=== PATIENT | male | born 1955 | race Hispanic/Latino ===

== ENCOUNTER 2017-05-10 07:48 | Day surgery (SDC) | payer BC ==
[2017-05-08 13:40] VITALS: BP 141/74
[2017-05-08 14:13] LABS: BASOPHILS % (AUTO) 0.9 % (0.0-5.0); EOSINOPHILS % (AUTO) 2.1 % (0.0-8.0); HEMATOCRIT 40.9 % (42-54); LYMPHOCYTES % (AUTO) 27.6 % (21.0-51.0); MEAN CORPUSCULAR HGB CONC 34.6 g/dL (32.0-36.0); MEAN CORPUSCULAR VOLUME 89.6 fL (79-99); MONOCYTES % (AUTO) 5.8 % (3.0-13.0); NEUTROPHILS % (AUTO) 63.6 % (40.0-77.0); PLATELET COUNT (AUTO) 260 K/uL (130-400); RED BLOOD CELL COUNT(AUTO) 4.56 MIL/uL (4.50-6.20); RED CELL DISTRIBUTION WIDTH 13.7 % (11.0-15.5); WHITE BLOOD COUNT (AUTO) 8.4 K/uL (4.8-10.8)
[2017-05-08 14:16] LABS: APPEARANCE,URINE Turbid (CLEAR); BILIRUBIN,URINE Negative (NEGATIVE); COLOR,URINE Yellow (YELLOW); GLUCOSE, URINE (UA) Negative (NEGATIVE); KETONES,URINE Negative (NEGATIVE); LEUKOCYTE ESTERASE ,URINE Small (NEGATIVE); NITRATE,URINE Negative (NEGATIVE); OCCULT BLOOD,URINE Negative (NEGATIVE); PH,URINE >=9.0 (5.0-8.0); PROTEIN,URINE Negative (NEGATIVE); UROBILINOGEN,URINE 0.2 mg/dL (0.2-1.0)
[2017-05-08 14:24] LABS: BACTERIA,URINE Moderate /HPF (None Seen); RBC,URINE None Seen /HPF (0-1)
[2017-05-08 14:24] LABS: INR 0.99 (0.85-1.15); PARTIAL THROMBOPLASTIN TIME 28.2 SEC (26.3-35.5); PROTHROMBIN TIME 10.4 SEC (9.6-11.6)
[2017-05-08 14:25] LABS: AMORPHOUS SEDIMENT,UR Moderate /LPF (None Seen); SQUAMOUS EPITHELIAL CELL,UR 0-2 /LPF (0-2)
[2017-05-10] VITALS (10 sets, daily range): BP systolic 119–150; BP diastolic 69–86
[~2017-05-10] VITALS: Ht 168.9 cm; Wt 108.8 kg
[~2017-05-10 07:48] MED LIST: GEMF600T3 PO; MOME13HF2 IH; SODIUM CHLORIDE 0.9% 500ML 500 ML IV SCH
[2017-05-10] MEDS ORDERED: LIDOCAINE HCL 2% 20ML ONE ×2 (09:29→10:05)
[2017-05-10] MEDS ORDERED: ISOVUE-370 50ML VIAL IV ONE (09:29)
[2017-05-10] MEDS ORDERED: HEPARIN SODIUM 1000UNIT/ML 10ML VIAL ONE (09:29)
[2017-05-10] MEDS ORDERED: IOPAMIDOL-370 100 ML VIAL IV ONE (09:29)
== END 2017-05-10 15:10 | disposition home or self-care (01) ==
LOC: DAH 07:48
PROVIDERS: ATTEND Internal Medicine Cardiovascular Disease
DX: I34.0 Nonrheumatic mitral (valve) insufficiency (principal); I49.3 Ventricular premature depolarization; J45.909 Unspecified asthma, uncomplicated; E78.5 Hyperlipidemia, unspecified; Z98.890 Other specified postprocedural states; Z79.899 Other long term (current) drug therapy; I10 Essential (primary) hypertension
CPT/HCPCS: 36415; 71045; 80048; 81001; 85025; 85610; 85730; 93005; 93460; A4606; C1760; C1894 ×2; J1644; J3490 ×2; J7040; Q9967 ×2

== ENCOUNTER 2017-05-22 14:30 | Inpatient (IN) | payer BC ==
[~2017-05-22] VITALS: Ht 170.2 cm; Wt 103.1 kg
[~2017-05-22 14:30] MED LIST changes: -SODIUM CHLORIDE 0.9% 500ML 500 ML IV SCH
[2017-05-24 11:29] VITALS: BP 135/86
[2017-05-24 11:49] LABS: BASOPHILS % (AUTO) 0.8 % (0.0-5.0); EOSINOPHILS % (AUTO) 1.7 % (0.0-8.0); HEMATOCRIT 41.4 % (42-54); LYMPHOCYTES % (AUTO) 26.7 % (21.0-51.0); MEAN CORPUSCULAR HEMOGLOBIN 30.7 pg (27.0-33.0); MEAN CORPUSCULAR HGB CONC 34.4 g/dL (32.0-36.0); MEAN CORPUSCULAR VOLUME 89.4 fL (79-99); MONOCYTES % (AUTO) 7.3 % (3.0-13.0); NEUTROPHILS % (AUTO) 63.5 % (40.0-77.0); PLATELET COUNT (AUTO) 268 K/uL (130-400); POTASSIUM 4.3 mmol/L (3.5-5.1); RED BLOOD CELL COUNT(AUTO) 4.63 MIL/uL (4.50-6.20); RED CELL DISTRIBUTION WIDTH 13.8 % (11.0-15.5); WHITE BLOOD COUNT (AUTO) 9.3 K/uL (4.8-10.8)
[2017-05-24 12:03] LABS: INR 0.99 (0.85-1.15); PARTIAL THROMBOPLASTIN TIME 29.9 SEC (26.3-35.5); PROTHROMBIN TIME 10.4 SEC (9.6-11.6)
[2017-05-24 12:28] LABS: HEMOGLOBIN A1C 5.9 % (4.0-6.0)
[2017-05-24] MEDS ORDERED: WATER FOR INJECTION,STERILE 20 ML VIAL IJ SCH (13:15)
[2017-05-25] VITALS (7 sets, daily range): BP systolic 98–135; BP diastolic 49–76
[2017-05-25] MEDS: CEFUROXIME SODIUM 1.5 GM VIAL IVP SCH ×2 (11:00→14:30)
[2017-05-25] MEDS ORDERED: SODIUM CHLORIDE 0.9% 1000ML 1,000 ML IV ONE (11:45)
[2017-05-25] MEDS ORDERED: AMINOCAPROIC ACID 250 MG/ML 20 ML VIAL IV ONE (12:00)
[2017-05-25] MEDS ORDERED: MANNITOL 25% 50ML VIAL IV ONE (12:00)
[2017-05-25] MEDS ORDERED: ALBUMIN (HUMAN) 25% 50 ML IV ONE (12:00)
[2017-05-25] MEDS ORDERED: CALCIUM CHLORIDE 100 MG/ML 10 ML SYG IVP ONE (12:00)
[2017-05-25] MEDS ORDERED: HEPARIN SODIUM 1000UNIT/ML 10ML VIAL IV ONE (12:00)
[2017-05-25] MEDS ORDERED: SODIUM BICARB 8.4% 50ML SYRINGE IVP ONE (12:00)
[2017-05-25] MEDS ORDERED: GLYCOPYRROLATE 0.2 MG/ML 5 ML VIAL ONE (14:07)
[2017-05-25] MEDS ORDERED: FENTANYL CITRATE PF 50 MCG/1 ML 20ML VIAL IJ ONE (14:07)
[2017-05-25] MEDS ORDERED: PROPOFOL 10 MG/ML 20ML VIAL IV ONE (14:07)
[2017-05-25] MEDS ORDERED: LIDOCAINE HCL 4% LTA SOL 4 ML VIAL ONE (14:07)
[2017-05-25] MEDS ORDERED: ROCURONIUM BROMIDE 10MG/1ML 5ML VL ONE ×7 (14:07→15:47)
[2017-05-25] MEDS ORDERED: LIDOCAINE HCL 1% 10 ML VIAL ONE (14:07)
[2017-05-25] MEDS ORDERED: LIDOCAINE HCL-MPF 1% 5ML AMP IJ ONE (14:07)
[2017-05-25] MEDS ORDERED: MIDAZOLAM HCL 1 MG/ML 5ML VIAL ONE (14:07)
[2017-05-25] MEDS ORDERED: LIDOCAINE PF 2% 5ML ABBOJECT ONE (14:07)
[2017-05-25] MEDS ORDERED: THROMBIN-JMI 5000 UNIT/VIAL TP ONE (14:40)
[2017-05-25] MEDS ORDERED: DELNIDO FORMULA 1 BAG IV ONE (14:42)
[2017-05-25] MEDS ORDERED: BACITRACIN 50,000 UNIT VIAL ONE (14:57)
[2017-05-25 15:20] LABS: ABG BASE EXCESS -1.9 mmol/L (-2.0-3.0); ABG OXYGEN SATURATION 99.2 % (95.0-99.0); ABG PCO2 40 mmHg (35-48)
[2017-05-25] MEDS ORDERED: METHYLPREDNISOLONE SOD SUCC 1,000 MG/8 ML ML IV ONE (15:26)
[2017-05-25] MEDS: AMBU PUMP 1 EACH EACH MISC SCH (15:30)
[2017-05-25 16:08] LABS: ABG BASE EXCESS -6.3 mmol/L (-2.0-3.0); ABG HCO3 19.5 mmol/L (21.0-28.0); ABG OXYGEN SATURATION 98.8 % (95.0-99.0); ABG PCO2 40 mmHg (35-48)
[2017-05-25 16:32] LABS: ABG BASE EXCESS -1.9 mmol/L (-2.0-3.0); ABG HCO3 23.3 mmol/L (21.0-28.0); ABG OXYGEN SATURATION 98.8 % (95.0-99.0); ABG PCO2 41 mmHg (35-48)
[2017-05-25] MEDS ORDERED: SODIUM CHLORIDE 0.9% 500ML 500 ML IV SCH (16:41)
[2017-05-25] MEDS ORDERED: SODIUM CHLORIDE 0.9% 1000ML 1,000 ML IV SCH (16:45)
[2017-05-25] MEDS ORDERED: DEXTROSE 50%-WATER 50 ML DISP.SYRIN IV PRN (16:45)
[2017-05-25] MEDS ORDERED: ACETAMINOPHEN 650 MG SUPPOSITORY RC PRN (16:45)
[2017-05-25] MEDS ORDERED: SODIUM CHLORIDE 0.9% 250 ML IV PRN (16:45)
[2017-05-25] MEDS ORDERED: CALCIUM GLUCONATE 1 GM in SODIUM CHLORIDE 0.9% 50 ML IV PRN (16:45)
[2017-05-25] MEDS ORDERED: ALBUMIN (HUMAN) 5% 250 ML IV PRN (16:45)
[2017-05-25] MEDS ORDERED: ACETAMINOPHEN 325 MG TAB PO PRN (16:45)
[2017-05-25] MEDS ORDERED: HYDROCODONE/ACETAMINOPHEN 5/325 MG TAB PO PRN (16:45)
[2017-05-25] MEDS ORDERED: NICARDIPINE HCL 100 MG in SODIUM CHLORIDE 0.9% 100 ML IV PRN (16:45)
[2017-05-25] MEDS ORDERED: MAGNESIUM 2GM PREMIX 50ML 50 ML IV PRN (16:45)
[2017-05-25] MEDS ORDERED: MORPHINE SULFATE 4 MG/1ML SYG IV PRN (16:45)
[2017-05-25] MEDS ORDERED: AMINOCAPROIC ACID 15,000 MG in SODIUM CHLORIDE 0.9% 250 ML IV SCH (16:45)
[2017-05-25] MEDS ORDERED: EPINEPHRINE 2 MG in SODIUM CHLORIDE 0.9% 250 ML IV PRN (16:45)
[2017-05-25] MEDS ORDERED: SODIUM BICARB 8.4% 50ML SYRINGE IV PRN (16:45)
[2017-05-25] MEDS ORDERED: POTASSIUM PHOS 15 mMOL+NS250ML 250 ML IV PRN (16:45)
[2017-05-25] MEDS ORDERED: NOREPINEPHRINE 4MG/NS 250ML 250 ML IV PRN (16:45)
[2017-05-25] MEDS ORDERED: INSULIN REGULAR, HUMAN 3ML 100 UNIT in SODIUM CHLORIDE 0.9% 99 ML IV SCH ×2 (16:45)
[2017-05-25] MEDS ORDERED: GLUCAGON 1MG KIT 1 MG ML IM PRN (16:45)
[2017-05-25] MEDS ORDERED: NITROGLYCERIN 50 MG/D5% WATER 250 BOT IV SCH (16:45)
[2017-05-25] MEDS ORDERED: ONDANSETRON HCL 4 MG/2 ML VIAL IV PRN (16:45)
[2017-05-25] MEDS ORDERED: SODIUM CHLORIDE 0.9% 10 ML VIAL IVP PRN (16:45)
[2017-05-25] MEDS ORDERED: PROTAMINE SULFATE 10 MG/ML 5 ML VIAL ONE (16:50)
[2017-05-25 17:07] LABS: ABG HCO3 24.9 mmol/L (21.0-28.0); ABG OXYGEN SATURATION 98.6 % (95.0-99.0); ABG PCO2 46 mmHg (35-48)
[2017-05-25] MEDS ORDERED: NITROGLYCERIN 50 MG/D5% WATER 1 BOT ONE (17:17)
[2017-05-25 17:29] LABS: ABG BASE EXCESS -3.9 mmol/L (-2.0-3.0); ABG HCO3 22.4 mmol/L (21.0-28.0); ABG OXYGEN SATURATION 98.2 % (95.0-99.0); ABG PCO2 46 mmHg (35-48)
[2017-05-25] MEDS ORDERED: FENTANYL CITRATE PF 50 MCG/1 ML 2ML VIAL ONE ×2 (17:44)
[2017-05-25] MEDS ORDERED: OCTYL 2-CYANOACRYLATE 1 EACH TP ONE (17:48)
[2017-05-25] MEDS: PROPOFOL 1000 MG/100 ML 100 ML IV PRN ×2 (18:41→21:58)
[2017-05-25 19:17] LABS: HEMATOCRIT 38.5 % (42-54); MEAN CORPUSCULAR HEMOGLOBIN 30.6 pg (27.0-33.0); MEAN CORPUSCULAR VOLUME 90.1 fL (79-99); PLATELET COUNT (AUTO) 228 K/uL (130-400); RED BLOOD CELL COUNT(AUTO) 4.28 MIL/uL (4.50-6.20); RED CELL DISTRIBUTION WIDTH 14.1 % (11.0-15.5)
[2017-05-25 19:18] LABS: ABG BASE EXCESS -8.6 mmol/L (-2.0-3.0); ABG HCO3 18.6 mmol/L (21.0-28.0); ABG OXYGEN SATURATION 90.5 % (95.0-99.0); ABG PCO2 44 mmHg (35-48)
[2017-05-25] MEDS ORDERED: SODIUM BICARB 50MEQ 50ML VIAL ONE ×2 (19:23→19:24)
[2017-05-25 19:29] LABS: CREATININE 1.5 mg/dL (0.5-1.5); MAGNESIUM 2.2 mg/dL (1.80-2.40); PHOSPHORUS 5.2 mg/dL (2.5-4.9); POTASSIUM 3.9 mmol/L (3.5-5.1)
[2017-05-25 19:34] LABS: WHITE BLOOD COUNT (AUTO) 30.5 K/uL (4.8-10.8)
[2017-05-25 20:06] LABS: BAND NEUTROPHILS % (MANUAL) 9 % (0-2); LYMPHOCYTES % (MANUAL) 5 % (22-44); MAN.DIFF COMMENT-IMPRESSION MANUAL DIFFERENTIAL; MONOCYTES % (MANUAL) 2 % (2-9); SEGMENTED NEUTROPHILS % 84 % (40-70)
[2017-05-25 20:07] LABS: PLATELET MORPHOLOGY COMMENT LARGE PLTS PRESENT
[2017-05-25] MEDS: POTASSIUM CHLORIDE 20MEQ/100ML 100 ML IV PRN ×2 (20:37→23:37)
[2017-05-26] VITALS (24 sets, daily range): BP systolic 89–169; BP diastolic 46–72
[2017-05-26] MEDS ORDERED: CEFUROXIME 1.5GM+NS 100ML 100 ML IV SCH (00:45)
[2017-05-26] MEDS: POTASSIUM CHLORIDE 20MEQ/100ML 100 ML IV PRN ×2 (01:16→19:42)
[2017-05-26] MEDS: MORPHINE SULFATE 2 MG/ML 1ML SYG IV PRN ×2 (01:16→05:05)
[2017-05-26] MEDS: PROPOFOL 1000 MG/100 ML 100 ML IV PRN (01:33)
[2017-05-26] MEDS: CEFUROXIME SODIUM 1.5 GM VIAL IVP SCH ×2 (01:59→13:13)
[2017-05-26] MEDS: WATER FOR INJECTION,STERILE 20 ML VIAL IJ SCH ×2 (02:07→13:13)
[2017-05-26 04:06] LABS: HEMATOCRIT 33.9 % (42-54); MEAN CORPUSCULAR HEMOGLOBIN 30.7 pg (27.0-33.0); MEAN CORPUSCULAR HGB CONC 34.2 g/dL (32.0-36.0); MEAN CORPUSCULAR VOLUME 89.8 fL (79-99); PLATELET COUNT (AUTO) 182 K/uL (130-400); RED BLOOD CELL COUNT(AUTO) 3.77 MIL/uL (4.50-6.20); RED CELL DISTRIBUTION WIDTH 14.3 % (11.0-15.5); WHITE BLOOD COUNT (AUTO) 18.2 K/uL (4.8-10.8)
[2017-05-26 04:11] LABS: CREATININE 1.3 mg/dL (0.5-1.5); PHOSPHORUS 1.7 mg/dL (2.5-4.9); POTASSIUM 4.3 mmol/L (3.5-5.1)
[2017-05-26] MEDS ORDERED: PHARMACY COMMUNICATION MISC SCH (04:45)
[2017-05-26 06:14] LABS: ABG BASE EXCESS -0.8 mmol/L (-2.0-3.0); ABG HCO3 23.9 mmol/L (21.0-28.0); ABG OXYGEN SATURATION 96.9 % (95.0-99.0); ABG PCO2 40 mmHg (35-48)
[2017-05-26] MEDS ORDERED: PANTOPRAZOLE SODIUM 40 MG TABLET.DR PO SCH (09:00)
[2017-05-26 09:44] LABS: ABG BASE EXCESS 3.9 mmol/L (-2.0-3.0); ABG HCO3 24.9 mmol/L (21.0-28.0); ABG OXYGEN SATURATION 94.5 % (95.0-99.0); ABG PCO2 28 mmHg (35-48)
[2017-05-26] MEDS: FAMOTIDINE/PF 20 MG/2 ML VIAL IV SCH ×2 (09:48→21:09)
[2017-05-26 10:33] LABS: ABG BASE EXCESS 2.1 mmol/L (-2.0-3.0); ABG HCO3 24.3 mmol/L (21.0-28.0); ABG OXYGEN SATURATION 96.6 % (95.0-99.0); ABG PCO2 31 mmHg (35-48)
[2017-05-26] MEDS: AMBU PUMP 1 EACH EACH MISC SCH (12:17)
[2017-05-26] MEDS: HYDROCODONE/ACETAMINOPHEN 5/325 MG TAB PO PRN ×3 (12:42→22:26)
[2017-05-26] MEDS: ASPIRIN 81MG TAB.CHEW PO SCH (13:53)
[2017-05-26] MEDS: METOPROLOL TARTRATE 25 MG TAB PO SCH ×2 (13:53→21:09)
[2017-05-26] MEDS: FUROSEMIDE 20 MG TABLET PO SCH (17:33)
[2017-05-26 19:23] LABS: PHOSPHORUS 3.7 mg/dL (2.5-4.9); POTASSIUM 3.8 mmol/L (3.5-5.1)
[2017-05-27] VITALS (19 sets, daily range): BP systolic 115–143; BP diastolic 42–80
[2017-05-27] MEDS: CEFUROXIME SODIUM 1.5 GM VIAL IVP SCH (01:10)
[2017-05-27] MEDS: WATER FOR INJECTION,STERILE 20 ML VIAL IJ SCH (01:11)
[2017-05-27 04:10] LABS: BASOPHILS % (AUTO) 0.1 % (0.0-5.0); HEMATOCRIT 31.5 % (42-54); LYMPHOCYTES % (AUTO) 6.4 % (21.0-51.0); MEAN CORPUSCULAR HEMOGLOBIN 31.7 pg (27.0-33.0); MEAN CORPUSCULAR VOLUME 90.7 fL (79-99); NEUTROPHILS % (AUTO) 87.5 % (40.0-77.0); PLATELET COUNT (AUTO) 162 K/uL (130-400); RED BLOOD CELL COUNT(AUTO) 3.47 MIL/uL (4.50-6.20); RED CELL DISTRIBUTION WIDTH 14.3 % (11.0-15.5); WHITE BLOOD COUNT (AUTO) 24.1 K/uL (4.8-10.8)
[2017-05-27 04:34] LABS: CREATININE 1.1 mg/dL (0.5-1.5); MAGNESIUM 1.9 mg/dL (1.80-2.40); POTASSIUM 3.8 mmol/L (3.5-5.1)
[2017-05-27] MEDS: POTASSIUM CHLORIDE 20MEQ/100ML 100 ML IV PRN (04:41)
[2017-05-27] MEDS: ASPIRIN 81MG TAB.CHEW PO SCH (08:06)
[2017-05-27] MEDS: FUROSEMIDE 20 MG TABLET PO SCH ×2 (08:06→16:33)
[2017-05-27] MEDS: METOPROLOL TARTRATE 25 MG TAB PO SCH ×2 (08:06→20:29)
[2017-05-27] MEDS: FAMOTIDINE/PF 20 MG/2 ML VIAL IV SCH ×2 (08:06→20:29)
[2017-05-27] MEDS: AMBU PUMP 1 EACH EACH MISC SCH (15:03)
[2017-05-27] MEDS: GEMFIBROZIL 600 MG TABLET PO SCH (16:32)
[2017-05-28] VITALS (7 sets, daily range): BP systolic 101–131; BP diastolic 49–70
[2017-05-28] MEDS: HYDROCODONE/ACETAMINOPHEN 5/325 MG TAB PO PRN ×3 (00:06→22:58)
[2017-05-28 03:54] LABS: HEMATOCRIT 29.8 % (42-54); MEAN CORPUSCULAR HEMOGLOBIN 30.1 pg (27.0-33.0); MEAN CORPUSCULAR HGB CONC 33.8 g/dL (32.0-36.0); PLATELET COUNT (AUTO) 150 K/uL (130-400); RED BLOOD CELL COUNT(AUTO) 3.35 MIL/uL (4.50-6.20); WHITE BLOOD COUNT (AUTO) 20.6 K/uL (4.8-10.8)
[2017-05-28 04:04] LABS: CREATININE 0.8 mg/dL (0.5-1.5); MAGNESIUM 2.1 mg/dL (1.80-2.40); POTASSIUM 3.7 mmol/L (3.5-5.1)
[2017-05-28] MEDS: GEMFIBROZIL 600 MG TABLET PO SCH ×2 (07:11→17:03)
[2017-05-28] MEDS ORDERED: POTASSIUM CHLORIDE 20MEQ/100ML 100 ML IV PRN (07:45)
[2017-05-28] MEDS ORDERED: POTASSIUM CHLORIDE 10% ELIXIR 20 MEQ/15 ML UDCUP PO PRN (07:45)
[2017-05-28] MEDS ORDERED: LIDOCAINE HCL-MPF 1% 2ML VIAL IVP PRN (07:45)
[2017-05-28] MEDS: FAMOTIDINE/PF 20 MG/2 ML VIAL IV SCH ×2 (08:31→21:03)
[2017-05-28] MEDS: FUROSEMIDE 20 MG TABLET PO SCH (08:31)
[2017-05-28] MEDS: POTASSIUM CHLORIDE 20 MEQ ERTAB PO PRN ×2 (08:32→09:11)
[2017-05-28] MEDS: ASPIRIN 81MG TAB.CHEW PO SCH (08:32)
[2017-05-28] MEDS: METOPROLOL TARTRATE 25 MG TAB PO SCH ×2 (08:32→21:03)
[2017-05-29] VITALS (7 sets, daily range): BP systolic 114–135; BP diastolic 38–73
[2017-05-29 03:56] LABS: HEMATOCRIT 30.8 % (42-54); MEAN CORPUSCULAR HEMOGLOBIN 31.2 pg (27.0-33.0); NUCLEATED RED BLOOD CELLS 0.1 % (0.0-0.19); PLATELET COUNT (AUTO) 180 K/uL (130-400); RED BLOOD CELL COUNT(AUTO) 3.46 MIL/uL (4.50-6.20); RED CELL DISTRIBUTION WIDTH 13.5 % (11.0-15.5); WHITE BLOOD COUNT (AUTO) 16.8 K/uL (4.8-10.8)
[2017-05-29 04:08] LABS: CREATININE 0.8 mg/dL (0.5-1.5); POTASSIUM 3.8 mmol/L (3.5-5.1)
[2017-05-29] MEDS: GEMFIBROZIL 600 MG TABLET PO SCH ×2 (06:31→17:04)
[2017-05-29] MEDS: POTASSIUM CHLORIDE 20 MEQ ERTAB PO PRN ×2 (06:32→12:36)
[2017-05-29] MEDS: ENOXAPARIN SODIUM 30 MG/0.3 ML SQ SCH (08:58)
[2017-05-29] MEDS: FUROSEMIDE 20 MG TABLET PO SCH (08:59)
[2017-05-29] MEDS: ASPIRIN 81MG TAB.CHEW PO SCH (08:59)
[2017-05-29] MEDS: METOPROLOL TARTRATE 25 MG TAB PO SCH ×2 (09:00→20:22)
[2017-05-29] MEDS: FAMOTIDINE/PF 20 MG/2 ML VIAL IV SCH ×2 (09:00→20:22)
[2017-05-30 00:06] VITALS: BP 132/56
[2017-05-30] MEDS: HYDROCODONE/ACETAMINOPHEN 5/325 MG TAB PO PRN (01:53)
[2017-05-30 03:49] VITALS: BP 132/57
[2017-05-30 07:00] VITALS: BP 127/52
[2017-05-30] MEDS: ASPIRIN 81MG TAB.CHEW PO SCH (08:49)
[2017-05-30] MEDS: FAMOTIDINE/PF 20 MG/2 ML VIAL IV SCH ×2 (08:49→21:05)
[2017-05-30] MEDS: METOPROLOL TARTRATE 25 MG TAB PO SCH ×2 (08:49→21:05)
[2017-05-30] MEDS: FUROSEMIDE 20 MG TABLET PO SCH (08:50)
[2017-05-30] MEDS: GEMFIBROZIL 600 MG TABLET PO SCH ×2 (08:50→16:26)
[2017-05-30] MEDS: ENOXAPARIN SODIUM 30 MG/0.3 ML SQ SCH (08:52)
[2017-05-30 11:00] VITALS: BP 106/38
[2017-05-30 12:04] LABS: HEMATOCRIT 37.2 % (42-54); MEAN CORPUSCULAR HEMOGLOBIN 30.6 pg (27.0-33.0); MEAN CORPUSCULAR HGB CONC 34.1 g/dL (32.0-36.0); MEAN CORPUSCULAR VOLUME 89.8 fL (79-99); PLATELET COUNT (AUTO) 299 K/uL (130-400); RED BLOOD CELL COUNT(AUTO) 4.14 MIL/uL (4.50-6.20); RED CELL DISTRIBUTION WIDTH 13.9 % (11.0-15.5); WHITE BLOOD COUNT (AUTO) 12.4 K/uL (4.8-10.8)
[2017-05-30 12:16] LABS: CREATININE 0.9 mg/dL (0.5-1.5); POTASSIUM 3.6 mmol/L (3.5-5.1)
[2017-05-30 13:02] LABS: EOSINOPHILS % (MANUAL) 6 % (1-6); LYMPHOCYTES % (MANUAL) 20 % (22-44); MAN.DIFF COMMENT-IMPRESSION MANUAL DIFFERENTIAL; MONOCYTES % (MANUAL) 2 % (2-9); PLATELET MORPHOLOGY COMMENT ADEQUATE; SEGMENTED NEUTROPHILS % 72 % (40-70)
[2017-05-30] MEDS: POTASSIUM CHLORIDE 20 MEQ ERTAB PO PRN ×2 (13:44→16:20)
[2017-05-30 16:00] VITALS: BP 129/71
[2017-05-30 20:00] VITALS: BP 127/70
[2017-05-31 00:17] VITALS: BP 113/66
[2017-05-31 04:08] VITALS: BP 108/52
[2017-05-31] MEDS: HYDROCODONE/ACETAMINOPHEN 5/325 MG TAB PO PRN (06:42)
[2017-05-31 07:00] VITALS: BP 108/55
[2017-05-31] MEDS: FAMOTIDINE/PF 20 MG/2 ML VIAL IV SCH (08:56)
[2017-05-31] MEDS: ASPIRIN 81MG TAB.CHEW PO SCH (08:56)
[2017-05-31] MEDS: GEMFIBROZIL 600 MG TABLET PO SCH ×2 (08:56→17:22)
[2017-05-31] MEDS: METOPROLOL TARTRATE 25 MG TAB PO SCH (08:57)
[2017-05-31] MEDS: FUROSEMIDE 20 MG TABLET PO SCH (08:57)
[2017-05-31] MEDS: ENOXAPARIN SODIUM 30 MG/0.3 ML SQ SCH (09:05)
[2017-05-31 11:00] VITALS: BP 124/55
[2017-05-31 16:00] VITALS: BP 120/55
== END 2017-05-31 19:09 | DRG 220 ==
LOC: EDSTATUS 14:30 → DAHIP 05-25 10:30 → 2CV 05-25 17:28 → 2CH 05-26 16:43 → 2BH 05-28 17:40 → 2AH 05-29 21:50
PROVIDERS: ADMIT Thoracic Surgery (Cardiothoracic Vascular Surgery); ATTEND Thoracic Surgery (Cardiothoracic Vascular Surgery)
PROC: B24BZZ4 Ultrasonography of Heart with Aorta, Transesophageal (ICD-10-PCS; 2017-05-25)
PROC: 5A1221Z Performance of Cardiac Output, Continuous (ICD-10-PCS; 2017-05-25)
PROC: 02L70ZK Occlusion of Left Atrial Appendage, Open Approach (ICD-10-PCS; principal; 2017-05-25 14:10)
PROC: 02UG0JZ Supplement Mitral Valve with Synthetic Substitute, Open Approach (ICD-10-PCS; 2017-05-25 14:10)
DX: I34.0 Nonrheumatic mitral (valve) insufficiency (principal); R65.10 Systemic inflammatory response syndrome (SIRS) of non-infectious origin without acute organ dysfunction; E66.01 Morbid (severe) obesity due to excess calories; D72.0 Genetic anomalies of leukocytes; E83.42 Hypomagnesemia; Z68.35 Body mass index [BMI] 35.0-35.9, adult; E78.5 Hyperlipidemia, unspecified; J45.909 Unspecified asthma, uncomplicated; I10 Essential (primary) hypertension; E87.6 Hypokalemia; E66.9 Obesity, unspecified; D64.9 Anemia, unspecified; Z79.82 Long term (current) use of aspirin; Z79.899 Other long term (current) drug therapy; Z95.2 Presence of prosthetic heart valve
CPT/HCPCS: 36415; 36600; 71045; 71046; 76998; 80048; 82330; 82435; 82803; 82947; 82948; 83036; 83605; 83735; 84100; 84132; 84295; 85007; 85018; 85025; 85027; 85347; 85610; 85730; 86850; 86900; 86901; 86922; 88313; 93005; 93318; 94002; 94003; 94150; 97039; A4218; A7048; J0697; J1644; J1650; J1815; J2001; J2150; J2250; J2704; J2720; J2930; J3010; J3475; J3480; J3490; J7030; J7040; P9045; P9047

== ENCOUNTER → 2017-08-21 | Outpatient (CLI) | payer BC | END | disposition home or self-care (01) | LOC: SHCH 12:30 | PROVIDERS: ATTEND Internal Medicine Cardiovascular Disease | DX: I51.7 Cardiomegaly (principal); I10 Essential (primary) hypertension | CPT/HCPCS: 93306 ==

== ENCOUNTER 2024-05-28 16:26 | Emergency (ER) | payer BC, OTHER ==
[~2024-05-28] VITALS: Ht 170.2 cm; Wt 113.4 kg
[~2024-05-28 16:26] MED LIST changes: -GEMF600T3 PO; +GEMF600T89 PO; +MOME13HF12 IH; -MOME13HF2 IH
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
[2024-05-28] MEDS: ibuPROFEN 400 MG TABLET PO ONE (17:24)
[2024-05-28] MEDS ORDERED: MELO-108 PO (18:00)
--- NOTE | 2024-05-28 18:25 | HMCIMG ---
LUMBAR SPINE RADIOGRAPHS - 2-3 VIEWS INDICATION: Back pain COMPARISON: None FINDINGS: AP, lateral views. Normal lordotic curvature of the lumbar spine is maintained. Extremely shallow lumbar levoscoliosis. Five nonrib-bearing lumbar vertebral bodies are noted. No acute fracture or subluxation identified. Vertebral body heights are well-maintained. Disc spaces are well-preserved. Multilevel nominal anterior endplate osteophytic spurring. Mild facet disease at the lower lumbar spine levels. IMPRESSION: No fracture or subluxation identified.
--- NOTE | 2024-05-28 18:25 | HMCIMG ---
PELVIS RADIOGRAPH (2 VIEW) INDICATION: Pain COMPARISON: None FINDINGS: No evidence for acute fracture or dislocation. Sacroiliac joints appear normal. Both hip joints appear normal. Right groin surgical clips. IMPRESSION: No radiographic evidence for fracture or dislocation.
[2024-05-28 18:26] VITALS: BP 161/89; PULSE 85; RESP 18; TEMP 98.3; O2SAT 99
== END 2024-05-28 18:33 | disposition home or self-care (01) ==
LOC: EDH 16:26
DX: M79.18 Myalgia, other site (principal); E78.00 Pure hypercholesterolemia, unspecified; I10 Essential (primary) hypertension; Z79.51 Long term (current) use of inhaled steroids; V89.2XXA Person injured in unspecified motor-vehicle accident, traffic, initial encounter; Y93.89 Activity, other specified; Y92.89 Other specified places as the place of occurrence of the external cause; Y99.8 Other external cause status
CPT/HCPCS: 72100; 72170; 99284